=== PATIENT | male | born 1950 | race Two or more races ===

== ENCOUNTER 2017-12-13 10:39 | Outpatient (CLI) | payer OTHER | END 2017-12-13 10:53 | disposition home or self-care (01) | LOC: SONOGRAMA 10:39 | DX: N40.0 Benign prostatic hyperplasia without lower urinary tract symptoms (principal) ==

== ENCOUNTER 2024-08-19 21:58 | Emergency (ER) | payer OTHER ==
[~2024-08-19] VITALS: Ht 167.6 cm; Wt 77.1 kg
[~2024-08-19 21:58] MED LIST: AMLODIPINE-BEN1 EAC4 PO; CARDURA8 MG PO; COLACE100 MG PO; LEVO-T112 MCG PO; LEVOXYL112 MCG; LIPITOR40 MG PO; PERCOCET 5-3251 EACH PO; TAMS0.4C; TAMS0.4C PO; ZETIA10 MG
[2024-08-19 22:02] VITALS: BP 150/70; O2SAT 98
[2024-08-20] MEDS ORDERED: DIPHENHYDRAMINE HCL 50 MG/ML VIAL 1ML IV STA (01:19)
[2024-08-20] MEDS ORDERED: METHYLPREDNISOLONE SOD SUCC 125 MG VIAL IV STA (01:19)
[2024-08-20] MEDS ORDERED: FAMOTIDINE/PF 20 MG/2 ML VIAL IV PUSH STA (01:19)
[2024-08-20] MEDS ORDERED: DIPHENHYDRAMINE HCL 50 MG/ML VIAL 1ML ONE (01:24)
[2024-08-20] MEDS ORDERED: FAMOTIDINE/PF 20 MG/2 ML VIAL ONE (01:25)
[2024-08-20] MEDS ORDERED: METHYLPREDNISOLONE SOD SUCC 125 MG VIAL ONE (01:25)
[2024-08-20] MEDS ORDERED: BENADRYL25 MG PO (04:04)
[2024-08-20] MEDS ORDERED: MEDROL8 MG PO (04:04)
== END 2024-08-20 04:32 ==
LOC: ER 22:00
DX: T78.3XXA Angioneurotic edema, initial encounter (principal); I10 Essential (primary) hypertension; E03.8 Other specified hypothyroidism
CPT/HCPCS: 96365; 99282; J1200; J3490

== ENCOUNTER 2025-01-13 09:40 | Outpatient (CLI) | payer OTHER ==
[~2025-01-13 09:40] MED LIST changes: +BENADRYL25 MG PO; +MEDROL8 MG PO
== END 2025-01-13 09:42 | disposition home or self-care (01) ==
LOC: NUCLEAR 09:40
PROVIDERS: ATTEND Internal Medicine
DX: I87.2 Venous insufficiency (chronic) (peripheral) (principal)

== ENCOUNTER 2025-06-30 08:46 | Outpatient (CLI) | payer OTHER | END 2025-06-30 08:50 | disposition home or self-care (01) | LOC: SONOGRAMA 08:46 | PROVIDERS: ATTEND Urology | DX: N40.1 Benign prostatic hyperplasia with lower urinary tract symptoms (principal) ==